=== PATIENT | male | born 1970 | race Caucasian/White ===

== ENCOUNTER 2016-11-20 17:14 | Emergency (ER) | payer OTHER ==
[2016-11-20 17:20] VITALS: BP 114/68; PULSE 74; RESP 20; TEMP 98; O2SAT 98
--- NOTE | 2016-11-20 18:11 | ED PDOC ---
HPI: CCC, URI, Sore Throat Time Seen by Provider: 11/20/16 17:21 Chief Complaint (Nursing): ENT Problem Chief Complaint (Provider): ENT Problem History Per: Patient History/Exam Limitations: no limitations Onset/Duration Of Symptoms: Days (x2 ) Current Symptoms Are (Timing): Still Present Additional Complaint(s): 46 y/o male presents to the emergency department with a complaint of a sore throat, cough, and sputum x2 days. Reports using home remedies such as gargling salt, honey, lemon, and vinegar. Denies fever and chills. Past Medical History Reviewed: Historical Data, Nursing Documentation, Vital Signs Vital Signs: Last Vital Signs Temp 98 F 11/20/16 17:15 Pulse 74 11/20/16 17:15 Resp 20 11/20/16 17:15 BP 114/68 11/20/16 17:15 Pulse Ox 98 11/20/16 18:21 - Medical History PMH: No Chronic Diseases - Surgical History Surgical History: Appendectomy, Cholecystectomy - Family History Family History: States: Unknown Family Hx - Social History Current smoker - smoking cessation education provided: No Alcohol: Social Drugs: Denies - Immunization History Hx Tetanus Toxoid Vaccination: No Hx Influenza Vaccination: No Hx Pneumococcal Vaccination: No - Home Medications Home Medications: Ambulatory Orders Medication Instructions Recorded Amoxicillin/Clavulanate [Augmentin 1 tab PO BID #14 tab 10/12/15 875 MG-125 MG] Ibuprofen [Motrin Tab] 800 mg PO Q8 PRN #20 tab 02/06/16 Ciprofloxacin/Dexamethasone 1 drop OT DAILY #1 bottle 11/20/16 [Ciprodex 0.3%-0.1% 7.5 Ml] Guaifenesin/Pseudoephedrne HCl 1 tab PO DAILY PRN #30 ter 11/20/16 [Mucinex D 600 mg-60 mg] Promethazine HCl/Codeine 5 ml PO HS #80 ml 11/20/16 [Prometh-Codein 6.25-10 mg/5 ml] - Allergies Allergies/Adverse Reactions: Allergies Allergy/AdvReac Type Severity Reaction Status Date / Time No Known Allergies Allergy Verified 11/20/16 17:15 Review of Systems ROS Statement: Except As Marked, All Systems Reviewed And Found Negative Constitutional: Negative for: Fever, Chills ENT: Positive for: Throat Pain Respiratory: Positive for: Cough, Sputum Physical Exam - Reviewed Nursing Documentation Reviewed: Yes Vital Signs Reviewed: Yes - Physical Exam Appears: Positive for: Non-toxic, No Acute Distress Head Exam: Positive for: ATRAUMATIC, NORMAL INSPECTION, NORMOCEPHALIC Skin: Positive for: Normal Color, Warm, Dry Eye Exam: Positive for: Normal appearance. Negative for: Conjunctival injection ENT: Positive for: Normal ENT Inspection. Negative for: Pharyngeal Erythema, Tonsillar Exudate, Tonsillar Swelling Cardiovascular/Chest: Positive for: Regular Rate, Rhythm. Negative for: Murmur Respiratory: Positive for: Normal Breath Sounds. Negative for: Accessory Muscle Use, Respiratory Distress Neurologic/Psych: Positive for: Alert, Oriented (x3) - ECG O2 Sat by Pulse Oximetry: 98 (RA) Pulse Ox Interpretation: Normal Medical Decision Making Medical Decision Making: Time: 18:05 Initial impression: Upper respiratory infection Initial plan: Patient was evaluated, medically cleared, and ready for discharge. Will prescribe medications for the resolution of symptoms. Advised to continue home remedies. Scribe Attestation: Documented by María Elena Cervantes, acting as a scribe for Sara Benson PA-C Provider Scribe Attestation: All medical record entries made by the Scribe were at my direction and personally dictated by me. I have reviewed the chart and agree that the record accurately reflects my personal performance of the history, physical exam, medical decision making, and the department course for this patient. I have also personally directed, reviewed, and agree with the discharge instructions and disposition. Disposition - Clinical Impression Clinical Impression: URI (upper respiratory infection) - Patient ED Disposition Is Patient to be Admitted: No - Disposition Disposition: Routine/Home Disposition Time: 18:23 Condition: STABLE Prescriptions: Ciprofloxacin/Dexamethasone [Ciprodex 0.3%-0.1% 7.5 Ml] 1 drop OT DAILY #1 bottle Guaifenesin/Pseudoephedrne HCl [Mucinex D 600 mg-60 mg] 1 tab PO DAILY PRN #30 ter PRN Reason: congestion Promethazine HCl/Codeine [Prometh-Codein 6.25-10 mg/5 ml] 5 ml PO HS #80 ml Instructions: Upper Respiratory Infection (ED) Forms: [employer] (Serbian)
== END 2016-11-20 18:55 | disposition home or self-care (01) ==
LOC: H.ER 17:14
DX: J06.9 Acute upper respiratory infection, unspecified (principal)

== ENCOUNTER 2017-12-06 18:06 | Emergency (ER) | payer OTHER ==
[2017-12-06 18:34] VITALS: BP 121/74; PULSE 61; RESP 16; TEMP 98.6; O2SAT 100
--- NOTE | 2017-12-06 21:43 | ED PDOC ---
Upper Extremity Pain/Injury Time Seen by Provider: 12/06/17 18:50 Chief Complaint (Nursing): Upper Extremity Problem/Injury Chief Complaint (Provider): Right Elbow Pain History Per: Patient History/Exam Limitations: no limitations Onset/Duration Of Symptoms: Days (x2 weeks) Current Symptoms Are (Timing): Still Present Additional Complaint(s): 47 year old male presents to the ED for evaluation of right elbow pain for the last two weeks s/p tripping outside landing on the elbow. Since, patient notes pain has been present but worse at night to the area, and must sleep with a straight right arm to relieve the pain. 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 Otherwise, denies numbness, paresthesias, weakness wrist pain, shoulder pain, neck pain, and head injury. PMD: none provided Past Medical History Reviewed: Historical Data, Nursing Documentation, Vital Signs Vital Signs: Last Vital Signs Temp 98.6 F 12/06/17 18:31 Pulse 61 12/06/17 18:31 Resp 16 12/06/17 18:31 BP 121/74 12/06/17 18:31 Pulse Ox 100 12/06/17 18:31 - Medical History PMH: No Chronic Diseases - Surgical History Surgical History: Appendectomy, Cholecystectomy - Family History Family History: States: Unknown Family Hx - Social History Current smoker - smoking cessation education provided: No Alcohol: Social Drugs: Denies - Immunization History Hx Tetanus Toxoid Vaccination: No Hx Influenza Vaccination: No Hx Pneumococcal Vaccination: No - Home Medications Home Medications: Ambulatory Orders Medication Instructions Recorded Amoxicillin/Clavulanate [Augmentin 1 tab PO BID #14 tab 10/12/15 875 MG-125 MG] Ibuprofen [Motrin Tab] 800 mg PO Q8 PRN #20 tab 02/06/16 Ciprofloxacin/Dexamethasone 1 drop OT DAILY #1 bottle 11/20/16 [Ciprodex 0.3%-0.1% 7.5 Ml] Guaifenesin/Pseudoephedrne HCl 1 tab PO DAILY PRN #30 ter 11/20/16 [Mucinex D 600 mg-60 mg] Promethazine HCl/Codeine 5 ml PO HS #80 ml 11/20/16 [Prometh-Codein 6.25-10 mg/5 ml] Ibuprofen [Motrin Tab] 600 mg PO Q6H PRN #30 tab 12/06/17 - Allergies Allergies/Adverse Reactions: Allergies Allergy/AdvReac Type Severity Reaction Status Date / Time No Known Allergies Allergy Verified 11/20/16 17:15 Review of Systems ROS Statement: Except As Marked, All Systems Reviewed And Found Negative Musculoskeletal: Positive for: Arm Pain (right elbow). Negative for: Neck Pain, Shoulder Pain, Other (wrist pain) Neurological: Negative for: Weakness, Numbness, Other (paresthesias) Physical Exam - Reviewed Nursing Documentation Reviewed: Yes Vital Signs Reviewed: Yes - Physical Exam Appears: Positive for: No Acute Distress Head Exam: Positive for: ATRAUMATIC, NORMOCEPHALIC Skin: Positive for: Normal Color, Warm, Dry Eye Exam: Positive for: Normal appearance Neck: Positive for: Normal, Painless ROM, Supple Cardiovascular/Chest: Positive for: Regular Rate, Rhythm Respiratory: Positive for: Normal Breath Sounds. Negative for: Respiratory Distress Extremity: Positive for: Normal ROM (of right elbow, but pain on flexion and extension). Negative for: Tenderness (to right arm), Deformity, Swelling (bruising or erythema to right arm) Neurologic/Psych: Positive for: Alert, Oriented (x3) - ECG O2 Sat by Pulse Oximetry: 100 (RA) Pulse Ox Interpretation: Normal Medical Decision Making Medical Decision Making: Time: 1899 Initial Impression: right elbow pain Initial Plan: --Ibuprofen 400mg PO --Right elbow XR 2009 Patient is to be discharged with ortho referral and advised to ibuprofen for pain / apply heat and janice bandage to affected area. Instructed to follow up with PMD or ED if symptoms worsen. Scribe Attestation: Documented by Sara Pena, acting as a scribe for Rere Milan PA-C. Provider Scribe Attestation: All medical record entries made by the Scribe were at my direction and personally dictated by me. I have reviewed the chart and agree that the record accurately reflects my personal performance of the history, physical exam, medical decision making, and the department course for this patient. I have also personally directed, reviewed, and agree with the discharge instructions and disposition. Disposition - Clinical Impression Clinical Impression: Elbow pain - Disposition Referrals: [facility] [Outside] Bryan Valerio MD [Staff Provider] - Disposition: Routine/Home Disposition Time: 19:40 Condition: IMPROVED Additional Instructions: Take ibuprofen 600mg every 6 hours with food as needed for pain Apply heat to injured area Keep injured area compressed with JANICE bandage Followup with orthopedic doctor within 2 days Followup with primary doctor within 2 days Return to ED if symptoms persist or worsen Prescriptions: Ibuprofen [Motrin Tab] 600 mg PO Q6H PRN #30 tab PRN Reason: Pain, Moderate (4-7) Forms: [facility] (Turkish)
--- NOTE | 2017-12-07 09:32 | RAD ---
Date of service: 12/06/2017 PROCEDURE: Radiographs of the right elbow. HISTORY: right elbow pain s/p trauma COMPARISON: No prior. FINDINGS: BONES: No acute fracture or destructive bony lesion identified. JOINTS: No subluxation or dislocation identified. SOFT TISSUES: Normal. JOINT EFFUSION: None. OTHER FINDINGS: None. IMPRESSION: Unremarkable radiographs of the right elbow.
== END 2017-12-06 19:55 | disposition home or self-care (01) ==
LOC: H.ER 18:06
DX: M25.521 Pain in right elbow (principal)

== ENCOUNTER 2018-07-15 21:04 | Emergency (ER) | payer OTHER ==
[2018-07-15 21:30] VITALS: BP 117/72; PULSE 63; RESP 18; TEMP 97.9; O2SAT 99
[2018-07-15] MEDS ORDERED: Fluorescein 1 mg Ophthalmic Strip OD STA (21:38)
[2018-07-15] MEDS ORDERED: Tetracaine 0.5% Ophth 2 ML BOTTLE OD STA (21:38)
--- NOTE | 2018-07-15 21:41 | ED PDOC ---
HPI: Eye Injury/Pain Time Seen by Provider: 07/15/18 21:32 Chief Complaint (Nursing): Eye Problem Chief Complaint (Provider): Eye Problem History Per: Patient History/Exam Limitations: no limitations Onset/Duration Of Symptoms: Days (x3) Current Symptoms Are (Timing): Still Present Additional Complaint(s): Patient is a 48 y/o male with no significant PMHx who presents to the ED for evaluation of left eye pain and redness onset three day ago. Patient states he works in construction and feels like there is a foreign body in his eye. Patient denies vision changes and contact or glasses use. PCP: None Provided Past Medical History Reviewed: Historical Data, Nursing Documentation, Vital Signs Vital Signs: Last Vital Signs Temp 97.9 F 07/15/18 21:28 Pulse 63 07/15/18 21:28 Resp 18 07/15/18 21:28 BP 117/72 07/15/18 21:28 Pulse Ox 99 07/15/18 21:28 Primary Care Provider: Bryan Duarte - Medical History PMH: No Chronic Diseases - Surgical History Surgical History: Appendectomy, Cholecystectomy - Family History Family History: States: Unknown Family Hx - Immunization History Hx Tetanus Toxoid Vaccination: No Hx Influenza Vaccination: No Hx Pneumococcal Vaccination: No - Home Medications Home Medications: Ambulatory Orders Medication Instructions Recorded Amoxicillin/Clavulanate [Augmentin 1 tab PO BID #14 tab 10/12/15 875 MG-125 MG] Ibuprofen [Motrin Tab] 800 mg PO Q8 PRN #20 tab 02/06/16 Ciprofloxacin/Dexamethasone 1 drop OT DAILY #1 bottle 11/20/16 [Ciprodex 0.3%-0.1% 7.5 Ml] Guaifenesin/Pseudoephedrne HCl 1 tab PO DAILY PRN #30 ter 11/20/16 [Mucinex D 600 mg-60 mg] Promethazine HCl/Codeine 5 ml PO HS #80 ml 11/20/16 [Prometh-Codein 6.25-10 mg/5 ml] Ibuprofen [Motrin Tab] 600 mg PO Q6H PRN #30 tab 12/06/17 Erythromycin 0.5% [Erythromycin] 1 applic OD QID #1 tube 07/15/18 - Allergies Allergies/Adverse Reactions: Allergies Allergy/AdvReac Type Severity Reaction Status Date / Time No Known Allergies Allergy Verified 07/15/18 21:28 Review of Systems ROS Statement: Except As Marked, All Systems Reviewed And Found Negative Eyes: Positive for: Pain (left), Redness. Negative for: Vision Change Physical Exam - Reviewed Nursing Documentation Reviewed: Yes Vital Signs Reviewed: Yes - Physical Exam Comments: GENERAL APPEARANCE: Patient is awake, alert, oriented x 3, in no acute distress. HEENT: (-) facial swelling and erythema, (-) facial blisters. LIDS & LASHES: Normal. PUPILS: PERRL EOMI's: Intact. LID EVERSION: (-) foreign body. CONJUNCTIVAE: (+)mild injection. CORNEA: (+) foreign body superficial ANTERIOR CHAMBER: (-) tear in iris, (-) hyphema. FLUOROSCEIN: no uptake - ECG O2 Sat by Pulse Oximetry: 99 (RA) Pulse Ox Interpretation: Normal Medical Decision Making Medical Decision Making: Time: Impression: Left Eye Pain; Foreign Body vs Corneal Abrasion Plan: Fluoroscein 1 mg OD Tetracaine 1 drop OD 22:30 foreign body removal done by me - first irrigated with saline without success, then using soft cotton tip able to remove, no abrasion on fluroscein exam after Discussed results, diagnosis, treatment, return precautions and f/u with pt who is understanding, in agreement and stable for dc Scribe Attestation: Documented by Philipp Yan, acting as a scribe for Ady Byrnes PA-C. Provider Scribe Attestation: All medical record entries made by the Scribe were at my direction and personally dictated by me. I have reviewed the chart and agree that the record accurately reflects my personal performance of the history, physical exam, medical decision making, and the department course for this patient. I have also personally directed, reviewed, and agree with the discharge instructions and disposition. Procedures - Time-Out Type of Procedure: foreign body removal - Eye Procedure Alcaine Drops Administered: Yes (tetracaine drops in left eye) Eye FB Removal: removal w/ cotton swab Eye Irrigated w/ Saline (ccs): 20 Disposition - Clinical Impression Clinical Impression: Foreign body in eye - Patient ED Disposition Is Patient to be Admitted: No Counseled Patient/Family Regarding: Studies Performed, Diagnosis, Need For Followup, Rx Given - Disposition Referrals: Mohit Melton MD [Staff Provider] - [facility] [Outside] Disposition: Routine/Home Disposition Time: 22:40 Condition: IMPROVED Additional Instructions: Thank you for letting us take care of you today. The emergency medical care you received today was directed at your acute symptoms. If you were prescribed any medication, please fill it and take as directed. It may take several days for your symptoms to resolve. Return to the Emergency Department if your symptoms worsen, do not improve, or if you have any other problems. Please contact your doctor in 2 days for re-evaluation and follow up / or call one of the physicians/clinics you have been referred to that are listed on the Patient Visit Information form that is included in your discharge packet. Bring any paperwork you were given at discharge with you along with any medications you are taking to your follow up visit. Our treatment cannot replace ongoing medical care by a primary care provider (PCP) outside of the emergency department. Eric por dejarnos cuidar de ti hoy. La atencin mdica de emergencia que recibi hoy se dirigi a estelle sntomas agudos. Si le recetaron algn medicamento, llnelo y tmelo segn las indicaciones. Los sntomas pueden tardar varios palafox en resolverse. Regrese al Departamento de Emergencias si estelle sntomas empeoran, no mejoran o si tiene otros problemas. Comunquese con valero mdico dentro de 2 palafox para patricia nueva evaluacin y bel un seguimiento o llame a vy de los mdicos / clnicas a los que marina sido referido y que figuran en el formulario de Informacin de visita al paciente que se incluye en valero paquete de wale. Lleve todos los documentos que recibi al momento del wale junto con los medicamentos que est tomando para valero visita de seguimiento. Nuestro tratamiento no puede reemplazar la atencin mdica continua por parte de un proveedor de atencin primaria (PCP) fuera del departamento de emergencias. Prescriptions: Erythromycin 0.5% [Erythromycin] 1 applic OD QID #1 tube Instructions: Foreign Body in Eye Forms: [facility] (Nepali) Print Language: CAMBODIAN - POA Present On Arrival: None
[2018-07-15] MEDS ORDERED: Fluorescein 1 mg Ophthalmic Strip ONE (22:17)
[2018-07-15] MEDS ORDERED: Tetracaine 0.5% Ophth 2 ML BOTTLE ONE (22:17)
== END 2018-07-15 22:46 | disposition home or self-care (01) ==
LOC: H.ER 21:04
DX: T15.82XA Foreign body in other and multiple parts of external eye, left eye, initial encounter (principal)